=== PATIENT | female | born 1995 | race Caucasian/White ===

== ENCOUNTER 2017-11-10 15:56 | Emergency (ER) | payer BC | END 2017-11-10 19:01 | disposition home or self-care (01) | LOC: FTE 15:56 | DX: R30.0 Dysuria (principal) | CPT/HCPCS: 99283 ==

== ENCOUNTER 2019-04-28 01:50 | Outpatient (CLI) | payer BC ==
[2019-04-28] MEDS: ACETAMINOPHEN 500 MG TAB PO (04:21)
[2019-04-28 05:09] LABS: ADD UMIC NO; UR ASCORBIC ACID NEGATIVE (NEGATIVE); UR BACTERIA FEW /HPF (NONE SEEN); UR BILIRUBIN (Dip) NEGATIVE (NEGATIVE); UR BLOOD (Dip) NEGATIVE (NEGATIVE); UR CLARITY CLEAR (CLEAR); UR COLOR STRAW (YELLOW); UR GLUCOSE (Dip) NEGATIVE (NEGATIVE); UR KETONES (Dip) NEGATIVE (NEGATIVE); UR LEUKOCYTE ESTERASE (Dip) NEGATIVE Leu/ul (NEGATIVE); UR NITRITE (Dip) NEGATIVE (NEGATIVE); UR RBC 0 /HPF (0-5); UR SPECIFIC GRAVITY (Dip) 1.006 (1.003-1.030); UR TOTAL PROTEIN (Dip) NEGATIVE (NEGATIVE); UR UROBILINOGEN (Dip) NEGATIVE (NEGATIVE); UR WBC 1 /HPF (0-5)
== END 2019-04-28 05:52 | disposition home or self-care (01) ==
LOC: OBT 01:50 → L-D 01:50 → OBT 05:52
DX: O46.8X3 Other antepartum hemorrhage, third trimester (principal); Z3A.34 34 weeks gestation of pregnancy
CPT/HCPCS: 76805; 81003; 85460; 86850; 86900; 86901

== ENCOUNTER 2019-05-29 20:46 | Inpatient (IN) | payer BC ==
[2019-05-29] MEDS ORDERED: OXYTOCIN 30 UNITS/LR 500 ML IV (23:00)
[2019-05-29] MEDS ORDERED: CARBOPROST 250 MCG INJ IM (23:00)
[2019-05-29] MEDS ORDERED: METHYLERGONOVINE 0.2 MG INJ IM (23:00)
[2019-05-29] MEDS ORDERED: BUTORPHANOL 2 MG INJ IV (23:00)
[2019-05-29] MEDS ORDERED: MISOPROSTOL 200 MCG TAB PR (23:00)
[2019-05-29] MEDS ORDERED: LIDOCAINE 1% (MPF) 30 ML INJ INJ (23:00)
[2019-05-29 23:28] LABS: ADD UMIC YES; UR ASCORBIC ACID 40 mg/dL (NEGATIVE); UR BACTERIA FEW /HPF (NONE SEEN); UR BILIRUBIN (Dip) NEGATIVE (NEGATIVE); UR BLOOD (Dip) NEGATIVE (NEGATIVE); UR CLARITY SLIGHTLY CLOUDY (CLEAR); UR COLOR YELLOW (YELLOW); UR GLUCOSE (Dip) 1+ mg/dL (NEGATIVE); UR KETONES (Dip) NEGATIVE (NEGATIVE); UR LEUKOCYTE ESTERASE (Dip) NEGATIVE Leu/ul (NEGATIVE); UR MUCUS MANY /HPF (NONE SEEN); UR NITRITE (Dip) NEGATIVE (NEGATIVE); UR RBC 1 /HPF (0-5); UR SPECIFIC GRAVITY (Dip) 1.022 (1.003-1.030); UR SQUAMOUS EPITHELIAL CELL FEW /HPF (FEW); UR TOTAL PROTEIN (Dip) 3+ mg/dl (NEGATIVE); UR UROBILINOGEN (Dip) NEGATIVE (NEGATIVE); UR WBC 3 /HPF (0-5)
[2019-05-29] MEDS ORDERED: AMPICILLIN 2 GM/NS (PMX) 100 ML IV (23:30)
[2019-05-29] MEDS: AL HYDROX/MG HYDROX/SIMETH 30 ML CUP PO (23:59)
[2019-05-30 00:03] LABS: ADD MAN DIFF? NO
[2019-05-30 00:06] LABS: BASOPHILS % 0.2 % (0.0-2.0); EOSINOPHILS # 0.1 10^3/ul (0.0-0.5); EOSINOPHILS % 0.9 % (0.0-7.0); HEMATOCRIT 36.6 % (37.0-47.0); HEMOGLOBIN 12.2 g/dl (12.0-16.0); LYMPHOCYTES # 2.6 10^3/ul (0.8-2.9); LYMPHOCYTES % 20.9 % (15.0-51.0); MEAN CORPUSCULAR HEMOGLOBIN 30.7 pg (29.0-33.0); MEAN CORPUSCULAR HGB CONC 33.3 g/dl (32.0-37.0); MEAN CORPUSCULAR VOLUME 92.2 fl (82.0-101.0); MEAN PLATELET VOLUME 11.9 fl (7.4-10.4); MONOCYTE # 0.9 10^3/ul (0.3-0.9); MONOCYTES % 6.8 % (0.0-11.0); NEUTROPHIL # 8.8 10^3/ul (1.6-7.5); NEUTROPHILS % 70.5 % (39.0-77.0); PLATELET COUNT 228 10^3/UL (140-415); RED BLOOD COUNT 3.97 10^6/ul (4.20-5.40); RED CELL DISTRIBUTION WIDTH 12.2 % (11.5-14.5)
[2019-05-30 00:06] LABS: WHITE BLOOD COUNT 12.5 10^3/ul (4.8-10.8)
[2019-05-30] MEDS: LACTATED RINGER'S 1,000 ML IV ×3 (00:09→22:53)
[2019-05-30 00:30] LABS: INR 0.95; PARTIAL THROMBOPLASTIN TIME 29.2 Sec (23.0-35.0); PROTIME 12.8 Sec (11.9-14.9)
[2019-05-30 00:37] LABS: URIC ACID 6.5 mg/dl (3.1-7.9)
[2019-05-30 00:39] LABS: ALANINE AMINOTRANSFERASE 32 IU/L (13-69); ALBUMIN 3.2 g/dl (3.3-4.9); ALBUMIN/GLOBULIN RATIO 0.96; ALKALINE PHOSPHATASE 210 IU/L (42-121); ANION GAP 9 (5-13); ASPARTATE AMINO TRANSFERASE 30 IU/L (15-46); BILIRUBIN,INDIRECT 0.4 mg/dl (0-1.1); BILIRUBIN,TOTAL 0.4 mg/dl (0.2-1.3); BLOOD UREA NITROGEN 8 mg/dl (7-20); CALCIUM 9.5 mg/dl (8.4-10.2); CARBON DIOXIDE 19 mmol/L (21-31); CHLORIDE 108 mmol/L (97-110); CREATININE 0.53 mg/dl (0.44-1.00); Estimated GFR > 60 mL/min (>60); GLUCOSE 73 mg/dl (70-220); POTASSIUM 3.9 mmol/L (3.5-5.1); SODIUM 136 mmol/L (135-144); TOTAL PROTEIN 6.5 g/dl (6.1-8.1)
[2019-05-30 01:05] LABS: HEPATITIS B SURFACE ANTIGEN NEGATIVE (NEGATIVE)
[2019-05-30] MEDS: MISOPROSTOL 50 MCG CAPSULE PO ×2 (01:07→06:11)
[2019-05-30 02:14] LABS: RUPTURE FETAL MEMBRANES NEGATIVE (NEGATIVE)
[2019-05-30] MEDS ORDERED: AMPICILLIN 1 GM/NS (PMX) 50 ML IV (03:30)
[2019-05-30] MEDS: BUTORPHANOL 2 MG INJ IV (03:47)
[2019-05-30] MEDS ORDERED: NALOXONE (0.4 MG/ML) INJ IV ×2 (08:30→09:00)
[2019-05-30] MEDS ORDERED: FENTAnyl 2MCG/ML-ROPIV 0.2% 100 ML (08:33)
[2019-05-30] MEDS ORDERED: MAGNESIUM SULFATE 4 GM/100 ML 100 ML (09:26)
[2019-05-30] MEDS ORDERED: MAGNESIUM SULFATE 20 GM/500 ML 500 ML IV (09:30)
[2019-05-30] MEDS: MAGNESIUM SULFATE 4 GM/100 ML 100 ML IVPB (09:45)
[2019-05-30] MEDS: MAGNESIUM SULFATE 40GM/1000ML 1,000 ML IV (10:09)
[2019-05-30] MEDS: OXYTOCIN 30 UNITS/LR 500 ML IV ×3 (10:30→22:42)
[2019-05-30] MEDS ORDERED: CARBOPROST 250 MCG INJ IM (15:00)
[2019-05-30] MEDS ORDERED: ONDANSETRON 4 MG INJ IV (15:00)
[2019-05-30] MEDS ORDERED: OXYTOCIN 30 UNITS/LR 500 ML IV (15:00)
[2019-05-30] MEDS ORDERED: HYDROCODONE/APAP (5/325) TAB PO ×2 (15:00)
[2019-05-30] MEDS ORDERED: ZOLPIDEM 5 MG TAB PO (15:00)
[2019-05-30] MEDS ORDERED: NACL 0.9% 3 ML SYG IV (15:00)
[2019-05-30] MEDS ORDERED: ACETAMINOPHEN 325 MG TAB PO (15:00)
[2019-05-30] MEDS ORDERED: METHYLERGONOVINE 0.2 MG INJ IM (15:00)
[2019-05-30] MEDS ORDERED: MISOPROSTOL 200 MCG TAB PR (15:00)
[2019-05-30 15:31] LABS: RAPID PLASMA REAGIN NONREACTIVE (NR)
[2019-05-30] MEDS: FENTAnyl 2MCG/ML-ROPIV 0.2% 100 ML BAG EPI ×2 (15:46→15:47)
[2019-05-30] MEDS: IBUPROFEN 600 MG TAB PO (17:56)
[2019-05-30 18:35] LABS: MAGNESIUM 4.6 mg/dl (1.7-2.5)
[2019-05-31 01:11] LABS: MAGNESIUM 5.9 mg/dl (1.7-2.5)
[2019-05-31] MEDS: IBUPROFEN 600 MG TAB PO (05:29)
[2019-05-31] MEDS: MAGNESIUM SULFATE 40GM/1000ML 1,000 ML IV ×2 (06:22→12:39)
[2019-05-31] MEDS: LACTATED RINGER'S 1,000 ML IV ×3 (06:53→22:53)
[2019-05-31 06:58] LABS: ADD MAN DIFF? NO
[2019-05-31 07:02] LABS: BASOPHILS % 0.2 % (0.0-2.0); EOSINOPHILS # 0.1 10^3/ul (0.0-0.5); EOSINOPHILS % 0.6 % (0.0-7.0); HEMATOCRIT 33.8 % (37.0-47.0); HEMOGLOBIN 11.3 g/dl (12.0-16.0); LYMPHOCYTES # 2.1 10^3/ul (0.8-2.9); LYMPHOCYTES % 15.1 % (15.0-51.0); MEAN CORPUSCULAR HEMOGLOBIN 30.8 pg (29.0-33.0); MEAN CORPUSCULAR HGB CONC 33.4 g/dl (32.0-37.0); MEAN CORPUSCULAR VOLUME 92.1 fl (82.0-101.0); MEAN PLATELET VOLUME 11.4 fl (7.4-10.4); MONOCYTE # 0.6 10^3/ul (0.3-0.9); MONOCYTES % 4.2 % (0.0-11.0); NEUTROPHIL # 11.1 10^3/ul (1.6-7.5); NEUTROPHILS % 79.3 % (39.0-77.0); PLATELET COUNT 170 10^3/UL (140-415); RED BLOOD COUNT 3.67 10^6/ul (4.20-5.40); RED CELL DISTRIBUTION WIDTH 12.4 % (11.5-14.5)
[2019-05-31 07:42] LABS: MAGNESIUM 6.4 mg/dl (1.7-2.5)
[2019-05-31] MEDS: OXYTOCIN 30 UNITS/LR 500 ML IV (08:34)
[2019-05-31] MEDS ORDERED: MAGNESIUM SULFATE 4 GM/100 ML 100 ML IV (09:30)
[2019-05-31] MEDS ORDERED: NACL 0.9% 3 ML SYG IV (09:30)
[2019-05-31] MEDS ORDERED: CA GLUCONATE (GM) 10% 10ML INJ IV (09:30)
[2019-05-31 12:35] LABS: ALANINE AMINOTRANSFERASE 35 IU/L (13-69); ALBUMIN 2.3 g/dl (3.3-4.9); ALKALINE PHOSPHATASE 162 IU/L (42-121); ANION GAP 2 (5-13); ASPARTATE AMINO TRANSFERASE 49 IU/L (15-46); BILIRUBIN,INDIRECT 0.4 mg/dl (0-1.1); BILIRUBIN,TOTAL 0.4 mg/dl (0.2-1.3); BLOOD UREA NITROGEN 6 mg/dl (7-20); CALCIUM 6.8 mg/dl (8.4-10.2); CARBON DIOXIDE 28 mmol/L (21-31); CHLORIDE 100 mmol/L (97-110); CREATININE 0.57 mg/dl (0.44-1.00); GLUCOSE 82 mg/dl (70-220); LACTATE DEHYDROGENASE 1277 IU/L (313-618); PHOSPHORUS 3.4 mg/dl (2.5-4.9); SODIUM 130 mmol/L (135-144); TOTAL PROTEIN 4.6 g/dl (6.1-8.1)
[2019-05-31 12:36] LABS: MAGNESIUM 5.1 mg/dl (1.7-2.5)
[2019-06-01] MEDS: LACTATED RINGER'S 1,000 ML IV (06:53)
[2019-06-01] MEDS: LANOLIN HPA 1 PKT TOP (08:42)
[2019-06-01] MEDS: WITCH HAZEL/GLYCERIN PAD PR (13:54)
[2019-06-01] MEDS: IBUPROFEN 600 MG TAB PO (17:33)
== END 2019-06-01 18:50 | disposition home or self-care (01) | DRG 807 ==
LOC: OBT 20:46 → L-D 20:46 → PP1 05-30 20:07 → L-D 21:27 → OBT 22:50 → L-D 22:50
PROC: 10E0XZZ Delivery of Products of Conception, External Approach (ICD-10-PCS; principal; 2019-05-30)
DX: O14.13 Severe pre-eclampsia, third trimester (principal); Z37.0 Single live birth; Z3A.39 39 weeks gestation of pregnancy
CPT/HCPCS: 62322; 76815; 80053; 80069; 80076; 81001; 83615; 83735; 84112; 84560; 85025; 85384; 85610; 85730; 86592; 86850; 86900; 86901; 87340